=== PATIENT | male | born 1990 | race American Indian/Alaskan Native ===

== ENCOUNTER 2017-02-08 12:01 | Emergency (ER) | payer OTHER ==
[2017-02-08 12:22] VITALS: BP 119/87
[2017-02-08] MEDS ORDERED: MOTRIN PO ONE (16:59)
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
== END 2017-02-08 18:32 | disposition home or self-care (01) ==
LOC: ED 12:01
DX: S13.4XXA Sprain of ligaments of cervical spine, initial encounter (principal); S39.012A Strain of muscle, fascia and tendon of lower back, initial encounter; V89.2XXA Person injured in unspecified motor-vehicle accident, traffic, initial encounter; Y93.9 Activity, unspecified; Y99.9 Unspecified external cause status; Y92.410 Unspecified street and highway as the place of occurrence of the external cause
CPT/HCPCS: 99282

== ENCOUNTER 2018-06-23 15:34 | Emergency (ER) | payer OTHER ==
[2018-06-23 15:45] VITALS: BP 132/86
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
== END 2018-06-23 18:38 | disposition home or self-care (01) ==
LOC: ED 15:34
DX: M54.9 Dorsalgia, unspecified (principal); F17.200 Nicotine dependence, unspecified, uncomplicated; V49.49XA Driver injured in collision with other motor vehicles in traffic accident, initial encounter; Y93.89 Activity, other specified; Y92.410 Unspecified street and highway as the place of occurrence of the external cause; Y99.8 Other external cause status
CPT/HCPCS: 72070; 72100

== ENCOUNTER 2021-12-07 16:31 | Emergency (ER) | payer OTHER, BC ==
[2021-12-07 16:42] VITALS: BP 127/81
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
== END 2021-12-08 01:20 | disposition home or self-care (01) ==
LOC: ED 16:31
DX: M79.18 Myalgia, other site (principal); F17.200 Nicotine dependence, unspecified, uncomplicated; Z72.89 Other problems related to lifestyle; Z79.899 Other long term (current) drug therapy; V87.7XXA Person injured in collision between other specified motor vehicles (traffic), initial encounter; Y93.89 Activity, other specified; Y92.488 Other paved roadways as the place of occurrence of the external cause; Y99.8 Other external cause status
CPT/HCPCS: 99282